=== PATIENT | female | born 1930 | race Caucasian/White ===

== ENCOUNTER 2017-02-09 15:34 | Inpatient (IN) | payer MEDICARE ==
[2017-02-09] VITALS (19 sets, daily range): BP systolic 175–228; BP diastolic 57–95
[~2017-02-09] VITALS: Ht 152 cm; Wt 71.8 kg
[~2017-02-09 15:34] MED LIST: ACTOS45 MG PO; AMLODIPINE BESY10 MG PO; AMLODIPINE10 MG PO; ASPIR-TRIN325 MG PO; ASPIRIN CHEWABL81 MG PO; ATIVAN0.5 MG PO; BETA CAROTENE PO; CELEXA20 MG PO; CO Q-10200 MG PO; COLACE100 MG PO; E400400 IU PO; HYDROCODONE BIT1 T11 PO; LEVAQUIN500 M1 PO; LEVOTHYROXINE0.1 MG PO; LISINOPRIL HCTZ1 TA1 PO; LOVASTATIN10 MG PO; MECLIZINE HCL25 M2 PO; METFORMIN1000 MG PO; METFORMIN500 MG PO; METOPROLOL SUCC50 M1 PO; NAPROXEN500 M1 PO; PLAVIX75 MG PO; PREMARIN0.45 MG PO; PREVACID30 M2 PO; PROTONIX TR40 M1 PO; SIMVASTATIN40 MG PO; SYMBICORT1 AER INH; TEMAZEPAM15 M1 PO; TRAZODONE100 MG PO; VENTOLIN H0.09 MG/AC INH; VITAMIN C1000 M2 PO; VITAMIN D1000 IU PO; ZOCOR40 MG PO; ZOFRAN4 MG PO; ZOLPIDEM10 MG PO; ZOLPIDEM5 MG PO
[2017-02-09 16:02] LABS: BASO % 0.7 % (0.0-1.0); EOS # 0.2 10*3/uL (0.0-0.4); EOS % 2.5 % (1.0-4.0); HEMATOCRIT 36.5 % (37.0-47.0); HEMOGLOBIN 12.2 g/dl (12.0-16.0); LYMPH # 1.6 10*3/uL (1.3-4.4); LYMPH % 26.2 % (27.0-41.0); MEAN CELL VOLUME 83.5 fl (81.0-99.0); MEAN CORPUSCULAR HGB 27.9 pg (27.0-31.0); MEAN CORPUSCULAR HGB CONC 33.4 g/dl (33.0-37.0); MEAN PLATELET VOLUME 9.2 fl (9.6-12.3); MONO # 0.6 10*3/uL (0.1-1.0); MONO % 10.6 % (3.0-9.0); NEUT # 3.5 10*3/uL (2.3-7.9); NEUT % 59.3 % (47.0-73.0); PLATELET COUNT AUTOMATED 200 10*3/uL (130-400); RED BLOOD COUNT 4.37 10*6/uL (4.10-5.10)
[2017-02-09 16:11] LABS: INTERNATIONAL NORM RATIO 0.9 (2.0-3.5); PROTHROMBIN TIME 9.7 SECONDS (9.0-12.4)
[2017-02-09 16:17] LABS: ALBUMIN 4.2 gm/dl (3.1-4.5); ALKALINE PHOSPHATASE 70 U/L (45-117); BILIRUBIN, TOTAL 0.3 mg/dl (0.2-1.0); BUN 18 mg/dl (7-24); CARBON DIOXIDE 27 mmol/L (21-32); CHLORIDE 99 mmol/L (98-107); CKMB 0.6 ng/ml (0.5-3.6); CPK 131 U/L (26-192); EST GLOM FILT AFRICAN AMERICAN > 60 ml/min; GLUCOSE 108 mg/dL (65-99); MAGNESIUM 1.7 mg/dL (1.5-2.1); POTASSIUM 4.2 mmol/L (3.5-5.1); SGOT/AST 14 IU/L (3-35); SGPT/ALT 18 U/L (12-78); SODIUM 135 mmol/L (136-145); TOTAL PROTEIN 7.2 gm/dL (6.4-8.2)
[2017-02-09 16:18] LABS: C-REACTIVE PROTEIN < 0.29 MG/DL (0-0.3); TROPONIN I < 0.015 ng/ml (<0.045)
[2017-02-09] MEDS ORDERED: PLAVIX75 M1 PO (16:20)
[2017-02-09] MEDS ORDERED: PRESERVISION A1 EAC1 PO (16:25)
[2017-02-09] MEDS ORDERED: LEVOTHYROXIN0.088 M1 PO (17:49)
[2017-02-09 17:55] LABS: CPK 119 U/L (26-192)
[2017-02-09 18:01] LABS: TROPONIN I < 0.015 ng/ml (<0.045)
[2017-02-10] VITALS: BP 123/37
[2017-02-10 00:42] LABS: CPK 110 U/L (26-192); TROPONIN I < 0.015 ng/ml (<0.045)
[2017-02-10 04:00] VITALS: BP 149/58
[2017-02-10 05:46] LABS: CKMB 1.2 ng/ml (0.5-3.6); CPK 122 U/L (26-192); TROPONIN I < 0.015 ng/ml (<0.045)
[2017-02-10 06:04] LABS: BUN 15 mg/dl (7-24); CARBON DIOXIDE 29 mmol/L (21-32); CHLORIDE 102 mmol/L (98-107); EST GLOM FILT AFRICAN AMERICAN > 60 ml/min; GLUCOSE 126 mg/dL (65-99); POTASSIUM 3.7 mmol/L (3.5-5.1); SODIUM 139 mmol/L (136-145)
[2017-02-10 06:05] LABS: BASO % 0.4 % (0.0-1.0); EOS # 0.1 10*3/uL (0.0-0.4); EOS % 1.8 % (1.0-4.0); HEMOGLOBIN 10.9 g/dl (12.0-16.0); LYMPH # 1.4 10*3/uL (1.3-4.4); LYMPH % 28.1 % (27.0-41.0); MEAN CELL VOLUME 84.4 fl (81.0-99.0); MEAN CORPUSCULAR HGB 27.9 pg (27.0-31.0); MEAN PLATELET VOLUME 9.5 fl (9.6-12.3); MONO # 0.5 10*3/uL (0.1-1.0); MONO % 9.4 % (3.0-9.0); NEUT # 2.9 10*3/uL (2.3-7.9); NEUT % 59.9 % (47.0-73.0); PLATELET COUNT AUTOMATED 166 10*3/uL (130-400); RED BLOOD COUNT 3.91 10*6/uL (4.10-5.10); RED CELL DISTRI WIDTH 14.2 % (0-14.5); WHITE BLOOD COUNT 4.9 10*3/uL (4.8-10.8)
[2017-02-10 06:11] LABS: FREE T4 1.21 ng/dl (0.76-1.46)
[2017-02-10 06:16] LABS: PROTHROMBIN TIME 10.5 SECONDS (9.0-12.4)
[2017-02-10 07:54] LABS: FOLIC ACID > 24.00 ng/mL (>5.38)
[2017-02-10 08:00] VITALS: BP 164/83
[2017-02-10] MEDS ORDERED: LISINOPRIL20 MG PO (11:43)
[2017-02-10] MEDS ORDERED: PREDNISONE20 M1 PO (11:43)
[2017-02-10 12:00] VITALS: BP 160/54
== END 2017-02-10 12:55 | disposition home or self-care (01) | DRG 305 ==
LOC: ED 15:34 → EDHOLD 17:19 → ICCU 17:43
PROVIDERS: Emergency Medicine; Internal Medicine
DX: I16.0 Hypertensive urgency (principal); I50.32 Chronic diastolic (congestive) heart failure; E11.65 Type 2 diabetes mellitus with hyperglycemia; J44.9 Chronic obstructive pulmonary disease, unspecified; I11.0 Hypertensive heart disease with heart failure; E78.5 Hyperlipidemia, unspecified; M54.31 Sciatica, right side; E03.9 Hypothyroidism, unspecified; Z88.1 Allergy status to other antibiotic agents; Z88.2 Allergy status to sulfonamides; Z88.8 Allergy status to other drugs, medicaments and biological substances; Z86.73 Personal history of transient ischemic attack (TIA), and cerebral infarction without residual deficits; Z90.710 Acquired absence of both cervix and uterus; Z98.42 Cataract extraction status, left eye; Z83.3 Family history of diabetes mellitus; Z82.49 Family history of ischemic heart disease and other diseases of the circulatory system; Z79.82 Long term (current) use of aspirin; Z79.899 Other long term (current) drug therapy